=== PATIENT | male | born 1985 | race Caucasian/White ===

== ENCOUNTER 2019-12-14 14:39 | Emergency (ER) | payer SELFPAY ==
[~2019-12-14] VITALS: Ht 180.3 cm; Wt 81.0 kg
[2019-12-14] MEDS ORDERED: FOLIC ACID 1 MG, THIAMINE HCL 100 MG, MVI, ADULT NO.1 10 ML in DEXTROSE 5% WATER 1,000 ML IV ONE ×4 (15:00)
[2019-12-14] MEDS ORDERED: ONDANSETRON HCL 4MG/2ML INJ IV ONE (15:00)
[2019-12-14 15:22] LABS: CHLORIDE 100 mEq/L (98-107)
[2019-12-14 15:29] LABS: BASOPHILS % 2.2 % (0.0-2.0); EOSINOPHILS % 0.5 % (0.0-5.0); HEMATOCRIT. 44.3 % (42.0-52.0); HEMOGLOBIN. 15.1 g/dL (14.0-18.0); LYMPHOCYTES % 34.5 % (20.0-50.0); MEAN CORPUSCULAR HEMOGLOBIN 31.6 pg (28.0-32.0); MEAN CORPUSCULAR VOLUME 92.5 fL (80.0-94.0); MONOCYTES % 9.2 % (2.0-8.0); NEUTROPHILS % 53.6 % (40.0-76.0); PLATELET 167 x1000/uL (130-400); RED BLOOD CELL COUNT 4.79 mill/uL (4.7-6.1); RED CELL DISTRIBUTION WIDTH 14.5 % (11.6-14.6)
[2019-12-14 15:55] LABS: ETHANOL BLOOD 466 mg/dL
[2019-12-14] MEDS: FOLIC ACID 1 MG, MVI, ADULT NO.1 10 ML in DEXTROSE 5% WATER 1,000 ML IV NR ×3 (15:57)
[2019-12-14 16:10] VITALS: BP 123/80
== END 2019-12-14 16:54 | disposition left against medical advice (07) ==
LOC: ER 14:39
DX: F10.129 Alcohol abuse with intoxication, unspecified (principal); G92 Toxic encephalopathy; G40.909 Epilepsy, unspecified, not intractable, without status epilepticus; F17.200 Nicotine dependence, unspecified, uncomplicated; F19.10 Other psychoactive substance abuse, uncomplicated; Y90.8 Blood alcohol level of 240 mg/100 ml or more
CPT/HCPCS: 36415; 80053; 80307; 80320; 80329; 85025; 96365; 96375; 99284; J2405; J3490; J7070; G0480

== ENCOUNTER 2019-12-19 13:57 | Emergency (ER) | payer SELFPAY ==
[~2019-12-19] VITALS: Ht 177.8 cm; Wt 64.0 kg
[2019-12-19 15:48] LABS: BASOPHILS % 1.8 % (0.0-2.0); EOSINOPHILS % 1.5 % (0.0-5.0); HEMATOCRIT. 34.4 % (42.0-52.0); HEMOGLOBIN. 11.7 g/dL (14.0-18.0); LYMPHOCYTES % 36.6 % (20.0-50.0); MEAN CORPUSCULAR HEMOGLOBIN 31.4 pg (28.0-32.0); MONOCYTES % 10.7 % (2.0-8.0); NEUTROPHILS % 49.4 % (40.0-76.0); PLATELET 121 x1000/uL (130-400); RED BLOOD CELL COUNT 3.74 mill/uL (4.7-6.1); RED CELL DISTRIBUTION WIDTH 14.6 % (11.6-14.6)
[2019-12-19 15:54] LABS: CHLORIDE 107 mEq/L (98-107)
[2019-12-19 16:06] LABS: ETHANOL BLOOD 418 mg/dL
[2019-12-19 17:31] LABS: *AMPHETAMINES SCREEN URINE NEGATIVE (NEGATIVE); *BARBITURATES SCREEN URINE NEGATIVE (NEGATIVE); *BENZODIAZEPINES SCREEN URINE NEGATIVE (NEGATIVE)
[2019-12-19 17:32] LABS: *COCAINE SCREEN URINE NEGATIVE (NEGATIVE); METHADONE URINE SCREEN NEGATIVE (NEGATIVE); OPIATES URINE SCREEN NEGATIVE (NEGATIVE); PHENCYCLIDINE URINE SCREEN NEGATIVE (NEGATIVE)
[2019-12-19 17:33] LABS: CANNABINOID URINE SCREEN NEGATIVE (NEGATIVE)
[2019-12-19 18:01] VITALS: BP 121/81
== END 2019-12-19 18:06 | disposition home or self-care (01) ==
LOC: ER 13:57
DX: F10.129 Alcohol abuse with intoxication, unspecified (principal); Y90.8 Blood alcohol level of 240 mg/100 ml or more
CPT/HCPCS: 36415; 80053; 80305; 80320; 85025; 99283; Z7610; G0480

== ENCOUNTER 2019-12-23 12:14 | Emergency (ER) | payer SELFPAY ==
[~2019-12-23] VITALS: Ht 175.3 cm; Wt 75.0 kg
[2019-12-23] MEDS ORDERED: SODIUM CHLORIDE 0.9% 1,000 ML IV ONE (12:35)
[2019-12-23 13:20] LABS: CLARITY URINE CLEAR (CLEAR); COLOR URINE YELLOW (YELLOW); KETONES URINE NEGATIVE (NEGATIVE); LEUKOCYTE ESTERASE URINE NEGATIVE (NEGATIVE); NITRITE URINE NEGATIVE (NEGATIVE); OCCULT BLOOD URINE NEGATIVE (NEGATIVE); PROTEIN URINE NEGATIVE (NEGATIVE); SPECIFIC GRAVITY URINE 1.004 (1.005-1.030); UROBILINOGEN URINE 0.2 E.U./dL (0.2-1.0)
[2019-12-23 13:21] LABS: EOSINOPHILS % 0.7 % (0.0-5.0); HEMATOCRIT. 40.2 % (42.0-52.0); HEMOGLOBIN. 13.8 g/dL (14.0-18.0); LYMPHOCYTES % 24.3 % (20.0-50.0); MEAN CORPUSCULAR HEMOGLOBIN 31.6 pg (28.0-32.0); MEAN CORPUSCULAR VOLUME 92.4 fL (80.0-94.0); MONOCYTES % 7.3 % (2.0-8.0); NEUTROPHILS % 65.7 % (40.0-76.0); PLATELET 107 x1000/uL (130-400); RED BLOOD CELL COUNT 4.36 mill/uL (4.7-6.1); RED CELL DISTRIBUTION WIDTH 15.3 % (11.6-14.6)
[2019-12-23 13:25] LABS: CHLORIDE 99 mEq/L (98-107)
[2019-12-23 13:33] LABS: *AMPHETAMINES SCREEN URINE NEGATIVE (NEGATIVE); *BARBITURATES SCREEN URINE NEGATIVE (NEGATIVE)
[2019-12-23 13:35] LABS: *COCAINE SCREEN URINE NEGATIVE (NEGATIVE); CANNABINOID URINE SCREEN NEGATIVE (NEGATIVE)
[2019-12-23 13:37] LABS: OPIATES URINE SCREEN NEGATIVE (NEGATIVE)
[2019-12-23 13:38] LABS: PHENCYCLIDINE URINE SCREEN NEGATIVE (NEGATIVE)
[2019-12-23 13:39] LABS: *BENZODIAZEPINES SCREEN URINE NEGATIVE (NEGATIVE)
[2019-12-23 13:40] LABS: METHADONE URINE SCREEN NEGATIVE (NEGATIVE)
[2019-12-23 13:58] LABS: ETHANOL BLOOD 436 mg/dL
[2019-12-23 15:08] VITALS: BP 130/78
== END 2019-12-23 15:08 | disposition left against medical advice (07) ==
LOC: ER 12:14
DX: G92 Toxic encephalopathy (principal); F10.229 Alcohol dependence with intoxication, unspecified; F19.10 Other psychoactive substance abuse, uncomplicated; Y90.8 Blood alcohol level of 240 mg/100 ml or more
CPT/HCPCS: 36415; 80053; 80305; 80307; 80320; 80329; 81003; 85025; 99283; J7030; G0480

== ENCOUNTER 2019-12-25 15:52 | Emergency (ER) | payer SELFPAY ==
[~2019-12-25] VITALS: Ht 175.3 cm; Wt 78.0 kg
[2019-12-25 16:01] VITALS: BP 143/104
== END 2019-12-25 16:23 | disposition left against medical advice (07) ==
LOC: ER 15:52
DX: F10.129 Alcohol abuse with intoxication, unspecified (principal); Y90.9 Presence of alcohol in blood, level not specified
CPT/HCPCS: 99283